=== PATIENT | female | born 1960 | race Caucasian/White ===

== ENCOUNTER 2023-01-11 11:26 | Outpatient (REF) | payer OTHER, SELFPAY ==
[2023-01-11 14:55] LABS: Anion Gap 19 (12-20); Carbon Dioxide 22 mmol/L (22-29); Chloride 93 mmol/L (96-108); Potassium 4.9 mmol/L (3.3-5.1); Sodium 129 mmol/L (135-145)
== END 2023-01-11 11:27 | disposition home or self-care (01) ==
LOC: HO.LAB 11:26
PROVIDERS: Visit Provider Psychiatry & Neurology Neurology
DX: E87.1 Hypo-osmolality and hyponatremia (principal)
CPT/HCPCS: 36415; 80051

== ENCOUNTER 2023-04-19 12:44 | Outpatient (REF) | payer OTHER, SELFPAY ==
[2023-04-19 14:08] LABS: Anion Gap 15 (12-20); Carbon Dioxide 25 mmol/L (22-29); Chloride 95 mmol/L (96-108); Potassium 4.8 mmol/L (3.3-5.1); Sodium 130 mmol/L (135-145)
== END 2023-04-19 12:45 | disposition home or self-care (01) ==
LOC: HO.LAB 12:44
PROVIDERS: PCP Internal Medicine; Visit Provider Psychiatry & Neurology Neurology
DX: E87.1 Hypo-osmolality and hyponatremia (principal)
CPT/HCPCS: 36415; 80051

== ENCOUNTER 2023-07-20 13:35 | Outpatient (REF) | payer OTHER, SELFPAY ==
[2023-07-20 14:36] LABS: Anion Gap 17 (12-20); Carbon Dioxide 26 mmol/L (22-29); Chloride 96 mmol/L (96-108); Potassium 4.7 mmol/L (3.3-5.1); Sodium 134 mmol/L (135-145)
== END 2023-07-20 13:36 | disposition home or self-care (01) ==
LOC: HO.LAB 13:35
PROVIDERS: PCP Nurse Practitioner Adult Health; Visit Provider Psychiatry & Neurology Neurology
DX: G62.9 Polyneuropathy, unspecified (principal)
CPT/HCPCS: 36415; 80051